=== PATIENT | female | born 1995 | race Caucasian/White ===

== ENCOUNTER → 2021-12-05 | Outpatient (CLI) | payer SELFPAY ==
[2021-12-05 17:06] LABS: BASOPHILS ABSOLUTE AUTO 0.03 K/mm3 (0.00-0.23); BASOPHILS PERCENT AUTO 1 % (0-2); EOSINOPHILS ABSOLUTE AUTO 0.03 K/mm3 (0.00-0.68); EOSINOPHILS PERCENT AUTO 1 % (0-6); Hematocrit 39.3 % (33.0-51.0); Hemoglobin 13.2 g/dL (11.5-16.0); IMMATURE GRAN ABSOLUTE AUTO 0.01 K/mm3 (0.00-0.10); IMMATURE GRAN PERCENT AUTO 0 % (0-1); LYMPHOCYTES ABSOLUTE AUTO 1.68 K/mm3 (0.84-5.20); LYMPHOCYTES PERCENT AUTO 27 % (21-46); MONOCYTES ABSOLUTE AUTO 0.37 K/mm3 (0.16-1.47); MONOCYTES PERCENT AUTO 6 % (4-13); Mean Corpuscular HGB 30.8 pg (26.0-34.0); Mean Corpuscular HGB Conc 33.6 g/dL (31.5-36.5); Mean Corpuscular Volume 92 fL (80-100); Mean Platelet Volume 8.3 fL (9.1-12.4); NEUTROPHILS ABSOLUTE AUTO 4.23 K/mm3 (1.96-9.15); NEUTROPHILS PERCENT AUTO 67 % (41-73); Platelet Count 217 K/mm3 (150-400); RDW Standard Deviation 40.8 fL (35.1-46.3); Red Blood Cell Count 4.28 M/mm3 (3.80-5.20); White Blood Cell Count 6.35 K/mm3 (4.00-11.30)
== END | disposition home or self-care (01) ==
LOC: LAB SHORT 17:00
PROVIDERS: Physician Assistant
DX: R10.31 Right lower quadrant pain (principal); R10.2 Pelvic and perineal pain
CPT/HCPCS: 85025

== ENCOUNTER → 2024-03-17 | Outpatient (CLI) | payer OTHER | LOC: LAB 14:44 → LAB SHORT 14:44 | DX: N92.6 Irregular menstruation, unspecified (principal) ==

== ENCOUNTER → 2024-05-15 | Outpatient (CLI) | payer OTHER | END | disposition home or self-care (01) | LOC: LAB SHORT 10:53 → LAB 10:53 | DX: R35.0 Frequency of micturition (principal) | CPT/HCPCS: 87086 ==

== ENCOUNTER 2024-09-18 13:10 | Emergency (ER) | payer OTHER ==
[~2024-09-18] VITALS: Ht 162.6 cm; Wt 65.8 kg
[2024-09-18 13:38] LABS: BASOPHILS ABSOLUTE AUTO 0.03 K/mm3 (0.00-0.23); BASOPHILS PERCENT AUTO 0 % (0-2); EOSINOPHILS ABSOLUTE AUTO 0.04 K/mm3 (0.00-0.68); EOSINOPHILS PERCENT AUTO 1 % (0-6); Hematocrit 31.1 % (33.0-51.0); Hemoglobin 10.9 g/dL (11.5-16.0); IMMATURE GRAN ABSOLUTE AUTO 0.03 K/mm3 (0.00-0.10); IMMATURE GRAN PERCENT AUTO 0 % (0-1); LYMPHOCYTES ABSOLUTE AUTO 2.04 K/mm3 (0.84-5.20); LYMPHOCYTES PERCENT AUTO 23 % (21-46); MONOCYTES ABSOLUTE AUTO 0.54 K/mm3 (0.16-1.47); MONOCYTES PERCENT AUTO 6 % (4-13); Mean Corpuscular HGB 32.2 pg (26.0-34.0); Mean Corpuscular Volume 92 fL (80-100); Mean Platelet Volume 8.7 fL (9.1-12.4); NEUTROPHILS ABSOLUTE AUTO 6.13 K/mm3 (1.96-9.15); NEUTROPHILS PERCENT AUTO 70 % (41-73); Platelet Count 235 K/mm3 (150-400); RDW Standard Deviation 43.1 fL (35.1-46.3); Red Blood Cell Count 3.38 M/mm3 (3.80-5.20); White Blood Cell Count 8.81 K/mm3 (4.00-11.30)
[2024-09-18 13:59] LABS: Albumin, Blood 3.4 g/dL (3.4-5.0); Albumin/Globulin Ratio 1.1 (0.8-1.8); Bilirubin, Total 0.1 mg/dL (0.1-1.0); Bun/Creatinine Ratio 16.3 (12.0-20.0); Calcium, Blood 9.4 mg/dL (8.5-10.1); Creatinine, Blood 0.49 mg/dL (0.40-1.00); Globulin, Blood 3.2 g/dL (2.2-4.0); Potassium, Blood 3.6 mmol/L (3.5-5.5); Total Protein, Blood 6.6 g/dL (6.4-8.2)
[2024-09-18 16:55] VITALS: BP 119/63
[2024-09-18] MEDS ORDERED: Acetaminophen 325 MG TABLET PO ONE (17:10)
== END 2024-09-18 17:50 | disposition home or self-care (01) ==
LOC: ER 13:10
PROVIDERS: Emergency Medicine
DX: O99.891 Other specified diseases and conditions complicating pregnancy (principal); R07.89 Other chest pain; Z3A.14 14 weeks gestation of pregnancy
CPT/HCPCS: 71046; 80053; 84484; 84702; 85025; 93005; 93010; 99283-25; A9270

== ENCOUNTER → 2024-11-17 | Outpatient (CLI) | payer OTHER | LOC: LAB SHORT 10:07 → LAB 10:07 | DX: L02.621 Furuncle of right foot (principal) | CPT/HCPCS: 87070; 87147; 87205 ==

== ENCOUNTER → 2025-02-17 | Outpatient (CLI) | payer OTHER | LOC: LAB 16:38 → LAB SHORT 16:38 | DX: O09.93 Supervision of high risk pregnancy, unspecified, third trimester (principal) | CPT/HCPCS: 87081; 87150 ==

== ENCOUNTER 2025-03-16 18:45 | Inpatient (IN) | payer BC, OTHER ==
[~2025-03-16] VITALS: Ht 157.5 cm; Wt 76.0 kg
[2025-03-16 19:13] VITALS: BP 129/68
[2025-03-16] MEDS ORDERED: Methylergonovine Maleate 0.2MG / ML 1ML Amp IM PRN (20:20)
[2025-03-16] MEDS ORDERED: Acetaminophen 500 MG Tab PO PRN (20:20)
[2025-03-16] MEDS ORDERED: Misoprostol 200 MCG Tab PR PRN (20:20)
[2025-03-16] MEDS ORDERED: OXYTOCIN/RINGER'S LACTATE 500 ML IV PRN (20:20)
[2025-03-16] MEDS ORDERED: Misoprostol 200 MCG Tab BC PRN (20:20)
[2025-03-16] MEDS ORDERED: Lactated Ringer's 1,000 ML IV PRN ×4 (20:20→20:25)
[2025-03-16] MEDS ORDERED: Carboprost Tromethamine 250 MCG/ML 1ML Amp IM PRN (20:20)
[2025-03-16] MEDS ORDERED: ePHEDrine Sulfate 50 MG/ML 1ML Injection XX PRN (20:20)
[2025-03-16] MEDS ORDERED: Oxytocin 10 Unit / ML Vial IM PRN (20:20)
[2025-03-16] MEDS ORDERED: FentaNYL 2mcg/ml-Bup 0.1% Epd 250 ML EPI PRN ×2 (20:20→22:40)
[2025-03-16] MEDS ORDERED: Tranexamic Acid 100 ML IV SCH (20:20)
[2025-03-16] MEDS ORDERED: Ondansetron HCl 2 MG / ML 2ML Vial IV PRN (20:20)
[2025-03-16] MEDS ORDERED: Calcium Carbonate 500 MG Tab Chew PO PRN (20:30)
[2025-03-16 20:38] LABS: BASOPHILS ABSOLUTE AUTO 0.03 K/mm3 (0.00-0.23); BASOPHILS PERCENT AUTO 0 % (0-2); EOSINOPHILS ABSOLUTE AUTO 0.04 K/mm3 (0.00-0.68); EOSINOPHILS PERCENT AUTO 0 % (0-6); Hematocrit 32.5 % (33.0-51.0); Hemoglobin 11.4 g/dL (11.5-16.0); IMMATURE GRAN ABSOLUTE AUTO 0.06 K/mm3 (0.00-0.10); IMMATURE GRAN PERCENT AUTO 1 % (0-1); LYMPHOCYTES ABSOLUTE AUTO 2.76 K/mm3 (0.84-5.20); LYMPHOCYTES PERCENT AUTO 23 % (21-46); MONOCYTES ABSOLUTE AUTO 0.95 K/mm3 (0.16-1.47); MONOCYTES PERCENT AUTO 8 % (4-13); Mean Corpuscular HGB 31.5 pg (26.0-34.0); Mean Corpuscular HGB Conc 35.1 g/dL (31.5-36.5); Mean Corpuscular Volume 90 fL (80-100); NEUTROPHILS PERCENT AUTO 69 % (41-73); Platelet Count 211 K/mm3 (150-400); RDW Coefficient Variation 13.1 % (11.7-14.2); RDW Standard Deviation 43.6 fL (35.1-46.3); Red Blood Cell Count 3.62 M/mm3 (3.80-5.20); White Blood Cell Count 12.24 K/mm3 (4.00-11.30)
[2025-03-16] MEDS ORDERED: Misoprostol 25 MCG Tab VAG SCH (21:15)
[2025-03-16] MEDS ORDERED: Misoprostol 25 MCG Tab VAG PRN (21:30)
[2025-03-16 22:20] VITALS: BP 125/68
[2025-03-16] MEDS ORDERED: NS EPI PRN (23:00)
[2025-03-16] MEDS ORDERED: BUPIVACAINE HCL EPI PRN (23:00)
[2025-03-17] VITALS (34 sets, daily range): BP systolic 93–152; BP diastolic 50–90
[2025-03-17] MEDS ORDERED: Lactated Ringer's 1,000 ML IV PRN (05:45)
[2025-03-17] MEDS ORDERED: OXYTOCIN/RINGER'S LACTATE 500 ML IV SCH ×2 (05:45→17:20)
[2025-03-17] MEDS ORDERED: ARIPiprazole 10 MG Tab PO SCH (11:30)
[2025-03-17] MEDS ORDERED: Docusate Sodium 100 MG Cap PO PRN (17:10)
[2025-03-17] MEDS ORDERED: Benzocaine Topical Anesthetic Spray 60GM TOP PRN (17:15)
[2025-03-17] MEDS ORDERED: Witch Hazel/Glycerin PADS TOP PRN (17:15)
[2025-03-17] MEDS ORDERED: Ketorolac Tromethamine 30mg Vial IV PRN (17:15)
[2025-03-17] MEDS ORDERED: Carboprost Tromethamine 250 MCG/ML 1ML Amp IM PRN (17:15)
[2025-03-17] MEDS ORDERED: Lanolin Cream TOP PRN (17:15)
[2025-03-17] MEDS ORDERED: Ibuprofen 400 MG Tab PO PRN (17:15)
[2025-03-17] MEDS ORDERED: Misoprostol 200 MCG Tab PR PRN (17:15)
[2025-03-17] MEDS ORDERED: Methylergonovine Maleate 0.2MG / ML 1ML Amp IM PRN (17:20)
[2025-03-17] MEDS ORDERED: Lactated Ringer's 1,000 ML IV SCH (17:20)
[2025-03-17] MEDS ORDERED: Rho(D) Immune Globulin 300 MCG / SYR IM ONE (17:20)
[2025-03-17] MEDS ORDERED: QUEtiapine Fumarate 25 MG Tab PO SCH (21:00)
[2025-03-17] MEDS ORDERED: LamoTRIgine 100 MG Tab PO SCH (21:00)
[2025-03-18 03:18] VITALS: BP 143/67
[2025-03-18 07:56] VITALS: BP 125/75
[2025-03-18] MEDS ORDERED: Prenatal Vit/FE Fumarate/FA 1 Tab PO SCH (09:00)
--- NOTE | 2025-03-18 09:38 | NUR ---
CONTACTED ZENAIDA IN CASE MANAGEMENT TO UPDATE ON ORDER PLACED FOR CONSULT.
--- NOTE | 2025-03-18 10:14 | NUR ---
SOCIAL WORK BY TO SPEAK WITH PATIENT AROUND 1000.
[2025-03-18 11:34] VITALS: BP 119/69
[2025-03-18 15:05] VITALS: BP 134/71
[2025-03-18 18:21] VITALS: BP 134/75
--- NOTE | 2025-03-18 18:27 | NUR ---
PT DISCHARGED HOME WITH
== END 2025-03-18 18:24 | disposition home or self-care (01) | DRG 806 ==
LOC: BC 18:45 → OBS 18:45 → BC 18:48 → OBS 18:54 → BC 18:56
PROVIDERS: ADMIT Obstetrics & Gynecology
PROC: 10E0XZZ Delivery of Products of Conception, External Approach (ICD-10-PCS; principal; 2025-03-17)
PROC: 10907ZC Drainage of Amniotic Fluid, Therapeutic from Products of Conception, Via Natural or Artificial Opening (ICD-10-PCS; 2025-03-17)
DX: O99.344 Other mental disorders complicating childbirth (principal); O99.324 Drug use complicating childbirth; Z37.0 Single live birth; O99.02 Anemia complicating childbirth; Z3A.39 39 weeks gestation of pregnancy; F15.10 Other stimulant abuse, uncomplicated; F12.10 Cannabis abuse, uncomplicated; F11.10 Opioid abuse, uncomplicated; F31.9 Bipolar disorder, unspecified; O76 Abnormality in fetal heart rate and rhythm complicating labor and delivery; Z90.89 Acquired absence of other organs; Z98.890 Other specified postprocedural states; Z86.79 Personal history of other diseases of the circulatory system; Z87.891 Personal history of nicotine dependence; Z88.0 Allergy status to penicillin; Z79.899 Other long term (current) drug therapy
CPT/HCPCS: 36415; 51702; 85025; 86850; 86900; 86901; A9270; J1885; J7120

== ENCOUNTER → 2025-08-04 | Outpatient (CLI) | payer OTHER ==
[2025-08-04 13:35] LABS: BASOPHILS ABSOLUTE AUTO 0.04 K/mm3 (0.00-0.23); BASOPHILS PERCENT AUTO 1 % (0-2); EOSINOPHILS ABSOLUTE AUTO 0.05 K/mm3 (0.00-0.68); EOSINOPHILS PERCENT AUTO 1 % (0-6); Hematocrit 38.0 % (33.0-51.0); Hemoglobin 13.2 g/dL (11.5-16.0); IMMATURE GRAN ABSOLUTE AUTO 0.01 K/mm3 (0.00-0.10); IMMATURE GRAN PERCENT AUTO 0 % (0-1); LYMPHOCYTES ABSOLUTE AUTO 2.23 K/mm3 (0.84-5.20); LYMPHOCYTES PERCENT AUTO 33 % (21-46); MONOCYTES ABSOLUTE AUTO 0.42 K/mm3 (0.16-1.47); MONOCYTES PERCENT AUTO 6 % (4-13); Mean Corpuscular HGB Conc 34.7 g/dL (31.5-36.5); Mean Corpuscular Volume 86 fL (80-100); NEUTROPHILS ABSOLUTE AUTO 4.03 K/mm3 (1.96-9.15); NEUTROPHILS PERCENT AUTO 60 % (41-73); NRBC ABSOLUTE 0.00 K/mm3 (0.00-0.02); NRBC Auto 0.0 /100 WBC (0.0-0.2); Platelet Count 283 K/mm3 (150-400); RDW Coefficient Variation 12.0 % (11.7-14.2); RDW Standard Deviation 37.8 fL (35.1-46.3)
[2025-08-04 13:45] LABS: Alanine Aminotransfer (ALT/SGP 19.0 U/L (12-78); Albumin, Blood 3.9 g/dL (3.4-5.0); Albumin/Globulin Ratio 1.2 (0.8-1.8); Anion Gap 16.0 mmol/L (6-16); Aspartate Aminotrans (AST/SGOT 22.0 U/L (12-37); Bilirubin, Total 0.2 mg/dL (0.1-1.0); Blood Urea Nitrogen 9.0 mg/dL (8-24); CO2, Blood 24.0 mmol/L (21-32); Calcium, Blood 9.2 mg/dL (8.5-10.1); Chloride, Blood 108.0 mmol/L (98-108); Creatinine, Blood 0.85 mg/dL (0.40-1.00); Globulin, Blood 3.2 g/dL (2.2-4.0); Glucose, Blood 107.0 mg/dL (70-99); Potassium, Blood 4.0 mmol/L (3.5-5.5); Sodium, Blood 144.0 mmol/L (136-145); Total Protein, Blood 7.1 g/dL (6.4-8.2)
== END ==
LOC: LAB SHORT 13:29 → LAB 13:29
PROVIDERS: Physician Assistant
DX: R10.9 Unspecified abdominal pain (principal)
CPT/HCPCS: 80053; 83690; 85025